=== PATIENT | male | born 1990 | race Caucasian/White ===

== ENCOUNTER 2016-10-14 00:27 | Emergency (ER) | payer OTHER ==
[~2016-10-14] VITALS: Ht 175.3 cm; Wt 82.0 kg
[2016-10-14 00:32] VITALS: BP 159/88; PULSE 86; RESP 18; TEMP 98.3; O2SAT 100
[2016-10-14 02:30] VITALS: BP 137/76; PULSE 77; RESP 18; O2SAT 97
[2016-10-14 04:21] VITALS: BP 134/72; PULSE 72; RESP 18; O2SAT 97
--- NOTE | 2016-10-14 04:29 | PD ---
HPI Chief Complaint: Alcohol/Drug Intoxication Time Seen by Provider: 04:23 Travel History International Travel<30 days: No Contact w/Intl Traveler<30days: No Traveled to known affect area: No History of Present Illness HPI The patient is a 26-year-old male that came here from [place] for this week. He was found at [facility] and asked to come to the hospital because he was cold. The police offered him a warm place but he insisted on coming to the hospital. He states he has chronic pain in his left knee and hands. He states he has been abusing cocaine, crystal meth, LSD, ketamine and ecstasy. PFSH Past Medical History Diminished Hearing: No Hypertension: Yes Medical other: Yes (ALCOHOL AND DRUG ABUSE) Tetanus Vaccination: < 5 Years Influenza Vaccination: No Social History Alcohol Use: Yes (DAILY) Tobacco Use: Yes (2 PPD) Substance Use: Yes (TODAY TOOK METH, COCAINE, MDA, LSD, KETAMINE) Allergies-Medications (Allergen,Severity, Reaction): Coded Allergies: No Known Allergies (Unverified , 10/14/16) Reported Meds & Prescriptions Reported Meds & Active Scripts Active No Active Prescriptions or Reported Medications Review of Systems Except as stated in HPI: all other systems reviewed are Neg Physical Exam Narrative GENERAL: The patient is alert, oriented 3 and does not appear intoxicated in any way. His vital signs show blood pressure 159/88 and are otherwise normal. Oximetry is 100%. SKIN: Warm and dry. No needle tracks are present. No wrist slash busch are present. HEAD: Atraumatic. Normocephalic. Neither raccoon eyes or harry sign is present. EYES: Pupils equal and round. No scleral icterus. No injection or drainage. ENT: No nasal bleeding or discharge. Mucous membranes pink and moist. Ears no hemotympanum present and there is no septal hematoma present. NECK: Trachea midline. No JVD. No posterior spinous process tenderness or deformity is present on the neck. CARDIOVASCULAR: Regular rate and rhythm. No murmur appreciated. RESPIRATORY: No accessory muscle use. Clear to auscultation. Breath sounds equal bilaterally. GASTROINTESTINAL: Abdomen soft, non-tender, nondistended. Hepatic and splenic margins not palpable. MUSCULOSKELETAL: No obvious deformities. No clubbing. No cyanosis. No edema. NEUROLOGICAL: Awake and alert. No obvious cranial nerve deficits. Motor grossly within normal limits. Normal speech. PSYCHIATRIC: Appropriate mood and affect; insight and judgment normal. The patient is alert and oriented 3 and does not appear intoxicated. Data Data Last Documented VS Vital Signs Date Time Temp Pulse Resp B/P Pulse Ox O2 Delivery O2 Flow Rate FiO2 10/14/16 04:21 72 18 134/72 97 Room Air 10/14/16 00:32 98.3 MDM Medical Decision Making Medical Screen Exam Complete: Yes Emergency Medical Condition: Yes Medical Record Reviewed: Yes Interpretation(s) The EKG shows sinus rhythm with a rate of 77 and is completely normal. Differential Diagnosis Polysubstance abuse, malingering to obtain warm bed, intoxication Narrative Course The patient appears to be malingering to obtain a place to sleep. He does not appear to be intoxicated in any way. Diagnosis Primary Impression: Malingering Additional Impression: Polysubstance abuse Additional Instructions: You need to discontinue all drugs of abuse. Med/Other Pt SpecificInfo: No Change to Meds Scripts No Active Prescriptions or Reported Meds Disposition: 01 DISCHARGE HOME Condition: Stable Alf Basilio MD Oct 14, 2016 04:29
[2016-10-14 05:45] VITALS: BP 131/74; PULSE 72; RESP 18; O2SAT 97
--- NOTE | 2016-10-14 15:16 | EKG ---
Date Performed: 10/14/2016 Time Performed: 01:14:02 PTAGE: 26 years EKG: Sinus rhythm Lateral ST changes, possible early repolarization, normal variant NO PREVIOUS TRACING DOCTOR: Efrain Harris Interpretating Date/Time 10/14/2016 15:14:49
== END 2016-10-14 06:03 | disposition home or self-care (01) ==
LOC: PHED 00:27
DX: Z76.5 Malingerer [conscious simulation] (principal); F19.10 Other psychoactive substance abuse, uncomplicated; F10.10 Alcohol abuse, uncomplicated; M25.562 Pain in left knee; M79.642 Pain in left hand; M79.641 Pain in right hand; G89.29 Other chronic pain; I10 Essential (primary) hypertension; F17.210 Nicotine dependence, cigarettes, uncomplicated
CPT/HCPCS: 93005; 99284